=== PATIENT | female | born 1960 | race Two or more races ===

== ENCOUNTER 2020-07-17 07:11 | Day surgery (SDC) | payer OTHER ==
[~2020-07-17 07:11] MED LIST: PREVACID30 MG; SINGULAIR10 MG
== END 2020-07-17 13:30 | disposition home or self-care (01) ==
LOC: AMB-ENDOS 07:11
PROVIDERS: ATTEND Colon & Rectal Surgery
DX: K57.32 Diverticulitis of large intestine without perforation or abscess without bleeding (principal); K64.1 Second degree hemorrhoids; Z20.822 Contact with and (suspected) exposure to COVID-19